=== PATIENT | male | born 1965 | race Caucasian/White ===

== ENCOUNTER 2017-09-02 12:11 | Emergency (ER) | payer OTHER ==
[~2017-09-02] VITALS: Ht 162.5 cm; Wt 90.7 kg
[~2017-09-02 12:11] MED LIST: ARTHRITIS; BACTRIM DS 8001 TA1 PO; HYDROCODONE BIT1 T11 PO; Motrin,Rufen800 MG PO; NEURONTIN300 MG PO; OXYCODONE HCL5 MG PO; PRILOSEC20 M1 PO; PRILOSEC20 M2 PO; REQUIP XL12 MG PO; REQUIP2 M2 PO; ZOFRAN ODT4 MG SL
[2017-09-02] MEDS ORDERED: TAMIFLU 75MG CA75 MG PO (13:04)
[2017-09-02] MEDS ORDERED: CLARITIN10 MG PO (13:04)
[2017-09-02] MEDS ORDERED: FLONASE ALLERG9.9 ML NAS (13:04)
[2017-09-02] MEDS ORDERED: PREDNISONE10 MG PO (13:04)
== END 2017-09-02 12:44 | disposition home or self-care (01) ==
LOC: ED 12:11
DX: J09.X2 Influenza due to identified novel influenza A virus with other respiratory manifestations (principal); R03.0 Elevated blood-pressure reading, without diagnosis of hypertension; F17.200 Nicotine dependence, unspecified, uncomplicated; Z98.890 Other specified postprocedural states; Z79.899 Other long term (current) drug therapy

== ENCOUNTER 2018-09-02 09:05 | Emergency (ER) | payer OTHER ==
[~2018-09-02 09:05] MED LIST changes: +CLARITIN10 MG PO; +FLONASE ALLERG9.9 ML NAS; +PREDNISONE10 MG PO; +TAMIFLU 75MG CA75 MG PO
[2018-09-02 10:03] LABS: BASO % 0.2 % (0.0-1.0); EOS % 0.1 % (1.0-4.0); HEMATOCRIT 42.5 % (42.0-52.0); HEMOGLOBIN 13.8 g/dl (14.0-18.0); LYMPH # 1.7 10*3/uL (1.3-4.4); MEAN CELL VOLUME 94.7 fl (80.0-94.0); MEAN CORPUSCULAR HGB 30.7 pg (27.0-31.0); MEAN CORPUSCULAR HGB CONC 32.5 g/dl (33.0-37.0); MEAN PLATELET VOLUME 10.1 fl (9.6-12.3); MONO # 1.1 10*3/uL (0.1-1.0); MONO % 6.4 % (3.0-9.0); NEUT # 13.7 10*3/uL (2.3-7.9); PLATELET COUNT AUTOMATED 239 10*3/uL (130-400); RED BLOOD COUNT 4.49 10*6/uL (4.50-5.90); RED CELL DISTRI WIDTH 12.6 % (0-14.5); WHITE BLOOD COUNT 16.5 10*3/uL (4.8-10.8)
[2018-09-02 10:23] LABS: ALBUMIN 3.6 gm/dl (3.1-4.5); ALKALINE PHOSPHATASE 81 U/L (45-117); BUN 23 mg/dl (7-24); CHLORIDE 104 mmol/L (98-107); CREATININE 1.08 mg/dL (0.70-1.30); POTASSIUM 4.3 mmol/L (3.5-5.1); SGOT/AST 18 IU/L (3-35); SGPT/ALT 27 U/L (12-78); SODIUM 138 mmol/L (136-145); TOTAL PROTEIN 8.2 gm/dL (6.4-8.2)
== END 2018-09-02 15:30 | disposition short-term general hospital (02) ==
LOC: ED 09:05
PROVIDERS: Nurse Practitioner Family
DX: A41.9 Sepsis, unspecified organism (principal); K12.2 Cellulitis and abscess of mouth; Z79.899 Other long term (current) drug therapy

== ENCOUNTER 2022-03-02 11:32 | Emergency (ER) | payer OTHER ==
[~2022-03-02] VITALS: Ht 167.6 cm; Wt 86.2 kg
[2022-03-02] MEDS ORDERED: DULOXETINE HCL30 MG PO (11:45)
[2022-03-02] MEDS ORDERED: ZESTRIL5 MG PO (11:45)
[2022-03-02] MEDS ORDERED: NUCYNTA PO (11:45)
[2022-03-02] MEDS ORDERED: PERCOCET 7.5-31 EACH PO (11:45)
[2022-03-02] MEDS ORDERED: METFORMIN HCL500 M2 PO (11:46)
[2022-03-02] MEDS ORDERED: LANTUS SOL100 UNIT/1 SC (11:46)
[2022-03-02] MEDS ORDERED: LYRICA150 M1 PO (11:47)
== END 2022-03-02 16:38 | disposition home or self-care (01) ==
LOC: ED 11:32
DX: S83.92XA Sprain of unspecified site of left knee, initial encounter (principal); Z79.4 Long term (current) use of insulin; Z79.899 Other long term (current) drug therapy; X50.1XXA Overexertion from prolonged static or awkward postures, initial encounter; Y93.89 Activity, other specified; Y92.89 Other specified places as the place of occurrence of the external cause; Y99.8 Other external cause status